=== PATIENT | female | born 1990 | race Caucasian/White ===

== ENCOUNTER 2023-04-04 09:44 | Emergency (ER) | payer BC ==
[~2023-04-04] VITALS: Ht 162.6 cm; Wt 90.9 kg
[2023-04-04 09:45] VITALS: TEMP 98.6
[2023-04-04] MEDS ORDERED: NORCO, ANEXSIA 5/325MG TABLET (HYDROcodone/ACETAMINOPHEN) PO ONE (11:00)
[2023-04-04] MEDS ORDERED: HYDR-3713 PO (12:45)
[2023-04-04 12:58] VITALS: BP 171/82; O2SAT 99
== END 2023-04-04 13:00 | disposition home or self-care (01) ==
LOC: M ED 09:44
DX: S46.912A Strain of unspecified muscle, fascia and tendon at shoulder and upper arm level, left arm, initial encounter (principal); W18.01XA Striking against sports equipment with subsequent fall, initial encounter; Y92.89 Other specified places as the place of occurrence of the external cause; Y93.A1 Activity, exercise machines primarily for cardiorespiratory conditioning; Y99.8 Other external cause status; Z87.891 Personal history of nicotine dependence

== ENCOUNTER 2023-05-08 12:05 | Emergency (ER) | payer BC ==
[~2023-05-08] VITALS: Ht 162.6 cm; Wt 88.1 kg
[~2023-05-08 12:05] MED LIST: HYDR-3713 PO
[2023-05-08] MEDS ORDERED: dayquil (12:16)
[2023-05-08 13:07] LABS: RSV AMPLIFICATION NEGATIVE (NEGATIVE)
[2023-05-08 14:29] VITALS: BP 134/87; TEMP 98.4; O2SAT 98
== END 2023-05-08 14:31 | disposition home or self-care (01) ==
LOC: M ED 12:05
DX: J09.X9 Influenza due to identified novel influenza A virus with other manifestations (principal); F17.290 Nicotine dependence, other tobacco product, uncomplicated; Z91.040 Latex allergy status

== ENCOUNTER 2023-06-23 13:30 | Emergency (ER) | payer BC ==
[~2023-06-23] VITALS: Ht 162.6 cm; Wt 90.8 kg
[~2023-06-23 13:30] MED LIST changes: +dayquil
[2023-06-23] MEDS: methylPREDNISolone 125MG 2ML VIAL IV ONE (17:23)
[2023-06-23] MEDS: diphenhydrAMINE 50MG/ML VIAL IV ONE (17:23)
[2023-06-23] MEDS: FAMOTIDINE 20MG/2ML VIAL IVP ONE (17:23)
[2023-06-23] MEDS: NS 1,000 ML IV ONE (17:23)
[2023-06-23 19:12] LABS: BASO # 0.1 10^3/uL (0.0-0.2); BASO % 0.6 % (0.0-1.0); EOS # 0.2 10^3/uL (0.0-0.5); EOS % 1.8 % (0.0-3.0); HEMATOCRIT 43.9 % (36.0-47.0); HEMOGLOBIN 14.8 g/dl (12.0-15.5); LYMPH # 2.1 10^3/uL (1.5-5.0); LYMPH % 20.2 % (24.0-44.0); MEAN CORPUSCULAR HEMOGLOBIN 31.5 pg (27.0-33.0); MEAN CORPUSCULAR HGB CONC 33.7 g/dl (32.0-36.5); MEAN CORPUSCULAR VOLUME 93.4 fl (80.0-96.0); MONO # 0.3 10^3/uL (0.0-0.8); MONO % 2.9 % (2.0-8.0); NEUTROPHILS # 7.7 10^3/uL (1.5-8.5); NEUTROPHILS % 74.2 % (36.0-66.0); PLATELET COUNT, AUTOMATED 286 10^3/uL (150-450); WHITE BLOOD COUNT 10.3 10^3/uL (4.0-10.0)
[2023-06-23] MEDS ORDERED: PRED20TA PO (19:45)
[2023-06-23] MEDS ORDERED: HYDR-3363 PO (19:45)
[2023-06-23 20:14] VITALS: BP 140/87; TEMP 97.9; O2SAT 97
== END 2023-06-23 20:13 | disposition home or self-care (01) ==
LOC: M ED 13:30
DX: R21 Rash and other nonspecific skin eruption (principal); Z91.040 Latex allergy status
CPT/HCPCS: 80047; 85025; 96360; 96361; 96374; 96375; 99284; J1200; J2930; S0028

== ENCOUNTER → 2023-08-19 | Outpatient (CLI) | payer BC ==
[~2023-08-19] MED LIST changes: +HYDR-3363 PO; +PRED20TA PO
[2023-08-19 13:28] LABS: HEMATOCRIT 44.3 % (36.0-47.0); HEMOGLOBIN 14.6 g/dl (12.0-15.5); MEAN CORPUSCULAR HEMOGLOBIN 30.5 pg (27.0-33.0); MEAN CORPUSCULAR VOLUME 92.7 fl (80.0-96.0); PLATELET COUNT, AUTOMATED 294 10^3/uL (150-450); RED BLOOD COUNT 4.78 10^6/uL (4.00-5.40); WHITE BLOOD COUNT 7.3 10^3/uL (4.0-10.0)
[2023-08-19 13:51] LABS: ALBUMIN 4.4 G/DL (3.2-5.2); ALKALINE PHOSPHATASE 76 U/L (46-116); ALT/SGPT 16 U/L (7.0-40); AST/SGOT 8 U/L (<34); BILIRUBIN,TOTAL 0.4 MG/DL (0.3-1.2); BLOOD UREA NITROGEN 10 MG/DL (9-23); CALCIUM LEVEL 9.4 MG/DL (8.5-10.1); CARBON DIOXIDE LEVEL 29 MMOL/L (20-31); CHLORIDE LEVEL 106 MMOL/L (98-107); CHOLESTEROL LEVEL 171 MG/DL (<200); CHOLESTEROL RISK RATIO 2.26 (<5); CREATININE FOR GFR 0.79 MG/DL (0.55-1.30); GLOMERULAR FILTRATION RATE > 60.0 (>60); GLUCOSE, FASTING 84 MG/DL (60-100); HDL CHOLESTEROL 75.4 MG/DL (>40); NON-HDL-C 95.6 MG/DL; POTASSIUM SERUM 4.2 MMOL/L (3.5-5.1); SODIUM LEVEL 141 MMOL/L (136-145); TRIGLYCERIDES LEVEL 118 MG/DL (<150)
[2023-08-19 13:53] LABS: FERRITIN 10.5 NG/ML (7.3-270.7)
== END ==
LOC: M PLALAB 11:40
PROVIDERS: ATTEND Family Medicine
DX: N92.0 Excessive and frequent menstruation with regular cycle (principal); K21.9 Gastro-esophageal reflux disease without esophagitis; Z13.220 Encounter for screening for lipoid disorders

== ENCOUNTER → 2023-09-30 | Outpatient (CLI) | payer BC ==
[2023-09-30 16:45] LABS: FREE T4 1.04 NG/DL (0.89-1.76); THYROID STIMULATING HORMONE 18.543 uIU/ML (0.55-4.78)
== END ==
LOC: M PLALAB 13:47
PROVIDERS: ATTEND Family Medicine
DX: R94.6 Abnormal results of thyroid function studies (principal)

== ENCOUNTER → 2023-10-05 | Outpatient (CLI) | payer BC ==
[~2023-10-05] MED LIST changes: +E-Z-GAS II EFFERVESCENT PACKET (SODIUM BICARB./CITRIC ACID/SIMETHICONE) As Ordered ONE; +E-Z-HD 98% w/w 340GM SUSP BTL As Ordered ONE; +E-Z-PAQUE 96% w/w SUSP 176GM BTL As Ordered ONE
== END ==
LOC: M RAD 08:09
PROVIDERS: ATTEND Family Medicine
DX: K21.9 Gastro-esophageal reflux disease without esophagitis (principal)

== ENCOUNTER 2023-10-31 22:40 | Emergency (ER) | payer BC ==
[~2023-10-31] VITALS: Ht 160 cm; Wt 99.5 kg
[~2023-10-31 22:40] MED LIST changes: -E-Z-GAS II EFFERVESCENT PACKET (SODIUM BICARB./CITRIC ACID/SIMETHICONE) As Ordered ONE; -E-Z-HD 98% w/w 340GM SUSP BTL As Ordered ONE; -E-Z-PAQUE 96% w/w SUSP 176GM BTL As Ordered ONE
[2023-10-31 22:54] VITALS: TEMP 97.8
[2023-11-01 00:37] LABS: BASO # 0.1 10^3/uL (0.0-0.2); BASO % 0.4 % (0.0-1.0); EOS # 0.1 10^3/uL (0.0-0.5); HEMATOCRIT 40.9 % (36.0-47.0); HEMOGLOBIN 14.1 g/dl (12.0-15.5); LYMPH % 17.1 % (24.0-44.0); MEAN CORPUSCULAR HEMOGLOBIN 31.2 pg (27.0-33.0); MEAN CORPUSCULAR HGB CONC 34.5 g/dl (32.0-36.5); MEAN CORPUSCULAR VOLUME 90.5 fl (80.0-96.0); MONO # 0.7 10^3/uL (0.0-0.8); MONO % 5.9 % (2.0-8.0); NEUTROPHILS # 8.6 10^3/uL (1.5-8.5); NEUTROPHILS % 75.3 % (36.0-66.0); PLATELET COUNT, AUTOMATED 279 10^3/uL (150-450); RED BLOOD COUNT 4.52 10^6/uL (4.00-5.40); WHITE BLOOD COUNT 11.5 10^3/uL (4.0-10.0)
[2023-11-01 00:38] LABS: AMPHETAMINES LEVEL URINE NEGATIVE (NEGATIVE); BARBITURATES URINE NEGATIVE (NEGATIVE); BENZODIAZEPINES URINE NEGATIVE (NEGATIVE); COCAINE METABOLITE URINE NEGATIVE (NEGATIVE); METHADONE URINE NEGATIVE (NEGATIVE); OPIATES URINE NEGATIVE (NEGATIVE); PHENCYCLIDINE URINE NEGATIVE (NEGATIVE)
[2023-11-01 00:39] LABS: CANNABINOIDS URINE POSITIVE (NEGATIVE)
[2023-11-01 00:54] LABS: ETHYL ALCOHOL (ETHANOL) 0.004 % (0.000-0.010)
[2023-11-01 00:55] LABS: BLOOD UREA NITROGEN 13 MG/DL (9-23); CALCIUM LEVEL 8.9 MG/DL (8.5-10.1); CARBON DIOXIDE LEVEL 24 MMOL/L (20-31); CHLORIDE LEVEL 106 MMOL/L (98-107); CK-MB VALUE MASS < 1.0 NG/ML (<3.6); CPK CREATINE PHOSPHOKINASE 91 U/L (34-145); CREATININE FOR GFR 0.82 MG/DL (0.55-1.30); GLOMERULAR FILTRATION RATE > 60.0 (>60); GLUCOSE, FASTING 108 MG/DL (60-100); MB/CK RELATIVE INDEX 1.09 (< OR =4); POTASSIUM SERUM 3.7 MMOL/L (3.5-5.1); SODIUM LEVEL 137 MMOL/L (136-145)
[2023-11-01 00:57] LABS: FREE T4 1.35 NG/DL (0.89-1.76); HCG, SERUM QUALITATIVE NEGATIVE (NEGATIVE)
[2023-11-01 00:58] LABS: THYROID STIMULATING HORMONE 10.909 uIU/ML (0.55-4.78)
[2023-11-01] MEDS ORDERED: KEPP1TAB PO (04:00)
[2023-11-01] MEDS: levETIRAcetam 250MG TABLET (KEPPRA) PO ONE (04:29)
[2023-11-01 04:34] VITALS: BP 161/74; O2SAT 97
== END 2023-11-01 04:35 | disposition home or self-care (01) ==
LOC: M ED 22:40
DX: G40.909 Epilepsy, unspecified, not intractable, without status epilepticus (principal); F31.9 Bipolar disorder, unspecified; E03.9 Hypothyroidism, unspecified; F17.200 Nicotine dependence, unspecified, uncomplicated; F10.10 Alcohol abuse, uncomplicated; Z91.040 Latex allergy status; Z79.52 Long term (current) use of systemic steroids; Z79.899 Other long term (current) drug therapy

== ENCOUNTER 2023-11-03 07:57 | Emergency (ER) | payer BC ==
[~2023-11-03] VITALS: Ht 162.6 cm; Wt 93.4 kg
[~2023-11-03 07:57] MED LIST changes: +KEPP1TAB PO
[2023-11-03] MEDS ORDERED: LEVO50TA5 (08:07)
[2023-11-03] MEDS ORDERED: PANT40TA29 (08:07)
[2023-11-03] MEDS ORDERED: LORA-930 PO (08:07)
[2023-11-03 09:18] LABS: BASO # 0.1 10^3/uL (0.0-0.2); BASO % 0.7 % (0.0-1.0); EOS # 0.1 10^3/uL (0.0-0.5); EOS % 1.1 % (0.0-3.0); HEMOGLOBIN 14.7 g/dl (12.0-15.5); LYMPH # 2.3 10^3/uL (1.5-5.0); LYMPH % 28.6 % (24.0-44.0); MEAN CORPUSCULAR HEMOGLOBIN 31.4 pg (27.0-33.0); MEAN CORPUSCULAR HGB CONC 34.2 g/dl (32.0-36.5); MEAN CORPUSCULAR VOLUME 91.9 fl (80.0-96.0); MONO # 0.6 10^3/uL (0.0-0.8); MONO % 6.8 % (2.0-8.0); NEUTROPHILS # 5.1 10^3/uL (1.5-8.5); NEUTROPHILS % 62.6 % (36.0-66.0); PLATELET COUNT, AUTOMATED 290 10^3/uL (150-450); RED BLOOD COUNT 4.68 10^6/uL (4.00-5.40); WHITE BLOOD COUNT 8.1 10^3/uL (4.0-10.0)
[2023-11-03 09:52] LABS: BLOOD UREA NITROGEN 8 MG/DL (9-23); CALCIUM LEVEL 9.4 MG/DL (8.5-10.1); CARBON DIOXIDE LEVEL 26 MMOL/L (20-31); CHLORIDE LEVEL 110 MMOL/L (98-107); GLOMERULAR FILTRATION RATE > 60.0 (>60); GLUCOSE, FASTING 92 MG/DL (60-100); POTASSIUM SERUM 4.4 MMOL/L (3.5-5.1); SODIUM LEVEL 140 MMOL/L (136-145)
[2023-11-03 09:55] LABS: THYROID STIMULATING HORMONE 5.035 uIU/ML (0.55-4.78)
[2023-11-03] MEDS: NS 1,000 ML IV ONE (09:59)
[2023-11-03] MEDS: KETOROLAC 30 MG/ML 1ML VIAL IV ONE (09:59)
[2023-11-03] MEDS: ACETAMINOPHEN 500 MG TAB PO ONE (09:59)
[2023-11-03 11:47] VITALS: BP 121/66; TEMP 97.6; O2SAT 98
== END 2023-11-03 11:52 | disposition home or self-care (01) ==
LOC: M ED 07:57
DX: R51.9 Headache, unspecified (principal); R55 Syncope and collapse; R00.1 Bradycardia, unspecified; G40.909 Epilepsy, unspecified, not intractable, without status epilepticus; E03.9 Hypothyroidism, unspecified; K21.9 Gastro-esophageal reflux disease without esophagitis; F31.9 Bipolar disorder, unspecified; F17.290 Nicotine dependence, other tobacco product, uncomplicated; F12.10 Cannabis abuse, uncomplicated; Z91.040 Latex allergy status; Z79.899 Other long term (current) drug therapy
CPT/HCPCS: 80048; 83735; 84439; 84443; 84702; 85025; 93005; 93041; 94760; 96361; 96374; 99284; J1885

== ENCOUNTER → 2023-11-04 | Outpatient (CLI) | payer BC ==
[~2023-11-04] MED LIST changes: +LEVO50TA5; +LORA-930 PO; +PANT40TA29
== END ==
LOC: M LRY 14:02
PROVIDERS: ATTEND Physician Assistant Medical
DX: R19.7 Diarrhea, unspecified (principal)

== ENCOUNTER → 2023-12-17 | Outpatient (CLI) | payer BC | LOC: M WHC 07:02 | PROVIDERS: ATTEND Nurse Practitioner Family | DX: N92.1 Excessive and frequent menstruation with irregular cycle (principal); N88.8 Other specified noninflammatory disorders of cervix uteri; R10.2 Pelvic and perineal pain ==

== ENCOUNTER → 2023-12-31 | Outpatient (CLI) | payer BC ==
[~2023-12-31] MED LIST changes: +FEXO-63 PO; +IBUP80TA PO; -LEVO50TA5; +LEVO50TA5 PO; +PANT20TA6 PO; +RIZA10TA58 PO
[2023-12-31 15:15] LABS: THYROID STIMULATING HORMONE 4.826 uIU/ML (0.55-4.78)
[2023-12-31 15:16] LABS: FREE T4 1.43 NG/DL (0.89-1.76)
[2023-12-31 15:21] LABS: THYROID PEROXIDASE ANTIBODY > 1300.0 U/ML (<60.0)
[2024-01-04 07:13] LABS: THRYOGLOBULIN ANTIBODIES (ATA) < 1 IU/mL (< or = 1); THYROGLOBULIN QUANTITATIVE 6.4 ng/mL (2.8-40.9)
== END ==
LOC: M PLALAB 11:17
PROVIDERS: ATTEND Family Medicine
DX: E03.9 Hypothyroidism, unspecified (principal)

== ENCOUNTER 2024-01-10 08:29 | Day surgery (SDC) | payer BC ==
[~2024-01-10] VITALS: Ht 162.6 cm; Wt 88.6 kg
[2024-01-10] MEDS: NS 1,000 ML IV ONE (08:47)
[2024-01-10] MEDS ORDERED: propofoL 200 MG/20 ML VIAL As Ordered ONE (09:19)
[2024-01-10] MEDS ORDERED: fentaNYL 100 MCG/2 ML INJECTION As Ordered ONE (09:19)
[2024-01-10] MEDS ORDERED: LIDOCAINE 2% 100MG/5ML SDV (FOR ANES.) As Ordered ONE (09:19)
[2024-01-10 09:58] VITALS: TEMP 97.8
[2024-01-10 10:14] VITALS: BP 135/85; O2SAT 99
== END 2024-01-10 10:24 | disposition home or self-care (01) ==
LOC: M OPP 08:29
PROVIDERS: ATTEND Internal Medicine Gastroenterology
DX: K62.89 Other specified diseases of anus and rectum (principal); K64.8 Other hemorrhoids; R19.7 Diarrhea, unspecified; K29.70 Gastritis, unspecified, without bleeding; R12 Heartburn; E03.9 Hypothyroidism, unspecified; F17.290 Nicotine dependence, other tobacco product, uncomplicated; Z79.1 Long term (current) use of non-steroidal anti-inflammatories (NSAID); Z79.890 Hormone replacement therapy; Z79.899 Other long term (current) drug therapy; Z91.040 Latex allergy status
CPT/HCPCS: 43239; 45380; 88305; J3010

== ENCOUNTER → 2024-02-23 | Outpatient (CLI) | payer BC ==
[~2024-02-23] MED LIST changes: +GLUCAGON INJ 1MG VIAL As Ordered ONE; +ISOVUE-370 76% 100ML VIAL As Ordered ONE; +NEULUMEX 0.1% SUSPENSION 450ML BOTTLE (FORMERLY VOLUMEN) As Ordered ONE
== END ==
LOC: M RAD 07:51
PROVIDERS: ATTEND Physician Assistant Medical
DX: R19.7 Diarrhea, unspecified (principal); R10.32 Left lower quadrant pain; R14.0 Abdominal distension (gaseous)

== ENCOUNTER 2024-04-20 12:30 | Emergency (ER) | payer BC ==
[~2024-04-20] VITALS: Ht 162.6 cm; Wt 92.5 kg
[~2024-04-20 12:30] MED LIST changes: -GLUCAGON INJ 1MG VIAL As Ordered ONE; -ISOVUE-370 76% 100ML VIAL As Ordered ONE; -NEULUMEX 0.1% SUSPENSION 450ML BOTTLE (FORMERLY VOLUMEN) As Ordered ONE
[2024-04-20 12:32] VITALS: BP 163/90; TEMP 97.8; O2SAT 100
== END 2024-04-20 15:18 | disposition left against medical advice (07) ==
LOC: M ED 12:30
DX: Z53.21 Procedure and treatment not carried out due to patient leaving prior to being seen by health care provider (principal)

== ENCOUNTER → 2025-01-03 | Outpatient (CLI) | payer BC | LOC: M PLALAB 10:37 | PROVIDERS: ATTEND Family Medicine | DX: E06.3 Autoimmune thyroiditis (principal) ==

== ENCOUNTER → 2025-01-19 | Outpatient (REF) | payer BC ==
[2025-01-23 14:38] LABS: HPV APTIMA Not Detected (Not Detected)
== END ==
LOC: M SFHCWAGY 15:23
PROVIDERS: ATTEND Advanced Practice Midwife
DX: Z01.419 Encounter for gynecological examination (general) (routine) without abnormal findings (principal)
CPT/HCPCS: 87624; G0123